=== PATIENT | female | born 1995 | race Two or more races ===

== ENCOUNTER 2017-06-27 08:11 | Emergency (ER) | payer OTHER ==
[~2017-06-27] VITALS: Ht 149.9 cm; Wt 59.9 kg
[2017-06-27] MEDS ORDERED: NKM (08:18)
[2017-06-27 08:20] VITALS: BP 146/90
[2017-06-27] MEDS ORDERED: PREDNISONE20 MG ORAL (08:57)
[2017-06-27] MEDS ORDERED: DIPHENHYDRAMINE25 M1 ORAL (08:57)
[2017-06-27 09:17] VITALS: BP 146/90
--- NOTE | 2017-06-27 10:14 | Emergency Room Report ---
History of Present Illness General Chief Complaint: Skin Rash/Abscess Source: Patient Present Illness HPI 22-year-old female presents ED for evaluation. Patient states she noticed a rash on her abdomen and her arms shortly after taking a shower 2 days ago. Patient denies any known food or drug allergies. Denies using any soaps or detergents. Denies buying any new clothing. It is very itchy. Denies any pain. Denies any sick contacts or recent travel. No other aggravating or relieving factors. Denies any other associated symptoms Allergies: Coded Allergies: No Known Allergies (Unverified , 06/27/17) Patient History Past Medical History: none Past Surgical History: none Pertinent Family History: none Social History: Denies: smoking, alcohol use, drug use Last Menstrual Period: Now: No Immunizations: UTD Reviewed Nursing Documentation: PMH: Agreed, PSxH: Agreed Nursing Documentation-PMH Past Medical History: No Stated History Review of Systems All Other Systems: negative except mentioned in HPI Physical Exam Vital Signs Date Time Temp Pulse Resp B/P (MAP) Pulse Ox O2 Delivery O2 Flow Rate FiO2 06/27/17 08:15 98.1 96 18 146/90 99 Room Air Sp02 EP Interpretation: reviewed, normal General Appearance: no apparent distress, alert, GCS 15, non-toxic Head: normocephalic Eyes: bilateral eye normal inspection, bilateral eye PERRL ENT: normal ENT inspection Neck: normal inspection Respiratory: normal inspection Cardiovascular #1: normal inspection Gastrointestinal: normal inspection Rectal: deferred Genitourinary: no CVA tenderness Musculoskeletal: normal inspection Neurologic: alert, oriented x3, responsive, motor strength/tone normal, sensory intact, speech normal Psychiatric: normal inspection Skin: rash - small papular rash noted to abdomen, arms and legs. nonerythematous base Lymphatic: normal inspection Medical Decision Making Diagnostic Impression: Primary Impression: Rash and other nonspecific skin eruption ER Course Hospital Course 22-year-old female presents to ED with rash to abdomen, arms and legs Differential diagnoses include: Cellulitis, dermatitis, insect bite, abscess Clinical course Patient placed on stretcher. After initial history, physical exam reveals a young female in no acute distress. On exam there are multiple papular lesions noted to the abdomen, arms and legs. nonerythematous base We will treat as a dermatitis likely a skin irritants. No tongue or throat swelling suggestive of a food or drug allergies. Diagnosis - rash stable and discharged to home with prescription for benedryl and prednisone. Instructed to followup with PMD. Instructed return to ED if symptoms recur or worsen Last Vital Signs Date Time Temp Pulse Resp B/P (MAP) Pulse Ox O2 Delivery O2 Flow Rate FiO2 06/27/17 09:17 98.1 18 146/90 99 Room Air 06/27/17 08:15 96 Status: improved Disposition: HOME, SELF-CARE Condition: Stable Scripts Diphenhydramine Hcl* (DIPHENHYDRAMINE HCL*) 25 Mg Capsule 25 MG ORAL Q6H Y for Itching, #30 CAP 0 Refills Prov: KRYSTIAN YI M.D. 06/27/17 Prednisone* (PREDNISONE*) 20 Mg Tablet 40 MG ORAL DAILY, #10 TAB Prov: KRYSTIAN YI M.D. 06/27/17 Patient Instructions: KRYSTIAN Agudelo M.D. Jun 27, 2017 10:14
== END 2017-06-27 09:17 | disposition home or self-care (01) ==
LOC: EMR 08:30
DX: R21 Rash and other nonspecific skin eruption (principal)
CPT/HCPCS: 99284